=== PATIENT | female | born 1965 | race American Indian/Alaskan Native ===

== ENCOUNTER 2017-10-02 10:02 | Outpatient (CLI) | payer BC ==
--- NOTE | 2017-10-02 16:36 | XRay Report ---
XRAY BILATERAL KNEE THREE FOUR EACH: 10/02/17 10:02:00 CLINICAL: Bilateral knee pain. FINDINGS: Right: Small medial and lateral osteophytes with normal medial and lateral joint spaces. 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 No fracture or dislocation. No joint effusion. Normal soft tissues. Left: Small medial and lateral osteophytes with normal medial and lateral joint spaces. 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 No fracture or dislocation. No joint effusion.Normal soft tissues. IMPRESSION: Bilateral osteoarthritis.
== END 2017-10-02 10:03 | disposition home or self-care (01) ==
LOC: SPVIMAG 10:02
PROVIDERS: ATTEND Orthopaedic Surgery
DX: M17.0 Bilateral primary osteoarthritis of knee (principal)